=== PATIENT | male | born 1965 | race Caucasian/White ===

== ENCOUNTER 2019-08-24 18:13 | Emergency (ER) | payer OTHER ==
[2019-08-24 18:35] VITALS: BP 128/81; PULSE 67; RESP 20; TEMP 97.8
[2019-08-24] MEDS ORDERED: LIDOCAINE 1% INJ 10MG/ML (20 ML MDV) SQ STA (19:17)
--- NOTE | 2019-08-24 20:13 | ED ---
General Adult HPI - General Chief complaint: Wound/Laceration Stated complaint: IHS-Finger lac Time Seen by Provider: 08/24/19 19:12 Source: patient, RN notes reviewed, old records reviewed Mode of arrival: ambulatory Limitations: no limitations - History of Present Illness Initial comments: 54-year-old male patient presents ED chief complaint of laceration to left thumb. Patient reports that he was using a knife when it slipped, puncturing the lateral aspect of his left thumb. Patient's lites range of motion of digit. Patient reports a tetanus updated in the last 3 years. Patient states the knife was clean brand-new. Denies any other complaints. Systemic: Pt denies fatigue, fever/chills, rash. Pt denies weakness, night sweats, weight loss. Neuro: Pt denies headache, visual disturbances, syncope or pre-syncope. HEENT: Pt denies ocular discharge or irritation, otalgia, rhinorrhea, pharyngitis or notable lymphadenopathy. Cardiopulmonary: Pt denies chest pain, SOB, heart palpitations, dyspnea on exertion. Abdominal/GI: Pt denies abdominal pain, n/v/d. : Pt denies dysuria, burning w/ urination, frequency/urgency. Denies new onset urinary or bowel incontinence. MSK: Pt denies myalgia, loss of strength or function in extremities. Neuro: Pt denies new onset weakness, paresthesias. - Related Data Allergies Allergy/AdvReac Type Severity Reaction Status Date / Time amoxicillin Allergy Rash/Hives Verified 08/24/19 18:35 Iodine and Iodide Containing Allergy Anaphylaxis Verified 08/24/19 18:35 Produc Review of Systems ROS Statement: Those systems with pertinent positive or pertinent negative responses have been documented in the HPI. ROS Other: All systems not noted in ROS Statement are negative. Past Medical History Past Medical History: No Reported History History of Any Multi-Drug Resistant Organisms: None Reported Past Surgical History: Hernia Repair, Orthopedic Surgery Past Psychological History: No Psychological Hx Reported Smoking Status: Never smoker Past Alcohol Use History: Occasional Past Drug Use History: None Reported General Exam - General Exam Comments Initial Comments: Constitutional: NAD, AOX3, Pt has pleasant affect. HEENT: NC/AT, trachea midline, neck supple, no lymphadenopathy. Posterior pharynx non erythematous, without exudates. External ears appear normal, without discharge. Mucous membranes moist. Eyes PERRLA, EOM intact. There is no scleral icterus. No pallor noted. Cardiopulmonary: RRR, no murmurs, rubs or gallops, no JVD noted. Lungs CTAB in anterior and posterior linn. No peripheral edema. Abdominal exam: Abdomen soft and non-distended. Abdomen non-tender to palpation in all 4 quadrants. Bowel sounds active in LLQ. No hepatosplenomegaly. No ecchymosis Neuro: CN II-XII grossly intact. No nuchal rigidity. No raccon eyes, no devlin sign, no hemotympanum. No cervical spinal tenderness. MSK: 3 cm laceration to lateral aspect of left thumb. Full active range of motion of digit. There is irrigated, approximated with 3 simple interrupted sutures. Full range of motion after suture placement. No posterior calf tenderness bilaterally, homans sign negative bilaterally. Posterior tibialis and radial pulse +2 bilaterally. Sensation intact in upper and lower extremities. Full active ROM in upper and lower extremities, 5/5 stregnth. Limitations: no limitations Course Vital Signs 08/24/19 18:32 Temperature 97.8 F Pulse Rate 67 Respiratory 20 Rate Blood Pressure 128/81 O2 Sat by Pulse 99 Oximetry Procedures - Laceration Laceration #1 Consent Obtained: verbal consent Indication: laceration Site: hand (L thumb) Size (cm): 3 Description: linear Depth: simple, single layer Anesthetic Used: lidocaine 1% Anesthesia Technique: local infiltration Amount (mls): 3 Pre-repair: wound explored, irrigated extensively, deep structures intact Type of Sutures: nylon Size of Sutures: 5-0 Number of Sutures: 3 Technique: simple, interrupted Patient Tolerated Procedure: well, no complications Medical Decision Making - Medical Decision Making 54-year-old male patient presents ED chief complaint of laceration to left thumb. Patient reports that he was using a knife when it slipped, puncturing the lateral aspect of his left thumb. Patient's lites range of motion of digit. Patient reports a tetanus updated in the last 3 years. Patient states the knife was clean brand-new. Denies any other complaints. Pt VSS, afebrile. Physical exam displayed: 3 cm laceration to lateral aspect of left thumb. Full active range of motion of digit. There is irrigated, approximated with 3 simple interrupted sutures. Full range of motion after suture placement. Patient discharged with return precautions. Case discussed with Dr. Shrestha. Disposition Clinical Impression: Laceration Disposition: HOME SELF-CARE Condition: Stable Instructions (If sedation given, give patient instructions): Laceration (ED) Additional Instructions: Patient to adhere to previously discussed treatment plan and will take medication(s) as directed. Patient to follow up with PCP in 1-2 days. Patient to return to ED if symptoms do not improve. Please return for suture removal: Hand: 7-10 days Face: 5 days Chest/abdomen: 12-14 days Extremities: 7-10 days Scalp: 7 days Eyebrow: 5-7 days Foot/sole: 12-14 days Please monitor for signs and symptoms of infection including: redness, warmth, drainage, discharge. Please return to ED if these signs or symptoms occur, new signs or symptoms develop or if condition worsens in anyway. Is patient prescribed a controlled substance at d/c from ED?: No Referrals: Jerel Hurd MD [Primary Care Provider] - 1-2 days
== END 2019-08-24 20:30 | disposition home or self-care (01) ==
LOC: EC 18:13
DX: S61.012A Laceration without foreign body of left thumb without damage to nail, initial encounter (principal); Z91.041 Radiographic dye allergy status; Z88.1 Allergy status to other antibiotic agents; W26.0XXA Contact with knife, initial encounter; Y93.89 Activity, other specified; Y92.69 Other specified industrial and construction area as the place of occurrence of the external cause; Y99.0 Civilian activity done for income or pay
CPT/HCPCS: 12002; 99283; J2001

== ENCOUNTER → 2021-05-04 | Outpatient (CLI) | payer OTHER | END | disposition home or self-care (01) | LOC: LABWHC1 12:08 | PROVIDERS: ATTEND Orthopaedic Surgery | DX: Z01.812 Encounter for preprocedural laboratory examination (principal) | CPT/HCPCS: 87070 ==

== ENCOUNTER 2021-05-19 08:23 | Day surgery (SDC) | payer BC, OTHER ==
[2021-05-14 10:05] VITALS: BMI 38.0
--- NOTE | 2021-05-18 18:33 | HP ---
HISTORY AND PHYSICAL CHIEF COMPLAINT: Right knee pain. 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 He notes swelling, stiffness, along with giving way. He is having pain with any prolonged weightbearing activities. He has tried medications in addition to injections with only partial temporary relief. He has worked on weight loss due to dietary restrictions and activity for the past 6 months. PAST MEDICAL HISTORY: Significant for arthritis, gastroesophageal reflux disease, obesity. PAST SURGICAL HISTORY: Significant for right carpal tunnel release, in addition to previous hernia surgery. CURRENT MEDICATIONS: Prilosec, meloxicam, and Celexa. He has ALLERGIES TO AMOXICILLIN, IVP DYE. FAMILY HISTORY: Significant for cancer. SOCIAL HISTORY: Significant for social alcohol use. REVIEW OF SYSTEMS: Sixteen-point review of systems is otherwise reviewed and is noncontributory. PHYSICAL EXAMINATION: On examination, the patient is approximately 6 feet tall, 285 pounds of endomorphic habitus. HEENT exam is nonfocal. Neck is supple. He has painless passive motion of right hip. Straight leg raise is negative. Active motion right knee -14 to 110 degrees of flexion. He has a large effusion. There is no warmth or erythema. He is tender about the medial joint line. Collaterals are stable, Leeann is negative, Bhumika's is equivocal. He has genu varum alignment. His distal neurovascular exam appears intact in the right lower extremity. Previous x-rays of the right knee obtained in the office show severe medial and patellofemoral compartment narrowing with [id number] changes in subchondral sclerosis. IMPRESSION: 1. Right knee severe medial and patellofemoral compartment osteoarthrosis. 2. Increased body mass index. RECOMMENDATIONS: I talked to the patient at length regarding his condition and treatment options. At this point, he is quite limited because of pain related to his osteoarthrosis despite conservative measures. After thorough discussion, he opts for surgery. We will plan to proceed with right total knee arthroplasty. In addition, will institute DVT prophylaxis postoperatively. Risks and benefits were discussed at length in layman's terms. MMODL / IJN: [id number] /
[~2021-05-19 08:23] MED LIST: ACETAMINOPHEN TAB 500 MG TAB PO PRN; MELOXICAM 7.5 MG TAB PO PRN; TRANEXAMIC ACID 1,000 MG in SODIUM CHLORIDE 0.9% 100 ML IVPB PRN; ceFAZolin 3 GM in SODIUM CHLORIDE 0.9% 100 ML IVPB PRN
[2021-05-19] MEDS ORDERED: ONDANSETRON 4 MG/2 ML VIAL ONE (09:03)
[2021-05-19] MEDS ORDERED: LACTATED RINGERS 1,000 ML IV ONE ×2 (09:11→12:06)
[2021-05-19] MEDS ORDERED: DEXAMETHASONE SOD PHOSPHATE 4 MG/ML 1 ML VIAL IV ONE (09:12)
[2021-05-19] MEDS ORDERED: MIDAZOLAM 2 MG/2 ML VIAL IV ONE (09:28)
[2021-05-19] MEDS ORDERED: fentaNYL (PF) 50 MCG/ML 2 ML AMP ONE (10:17)
[2021-05-19] MEDS ORDERED: TRANEXAMIC ACID 1,000 MG/10 ML VIAL ONE (10:17)
[2021-05-19] MEDS ORDERED: MIDAZOLAM 2 MG/2 ML VIAL ONE (10:17)
[2021-05-19] MEDS ORDERED: SODIUM CHLORIDE 0.9% 100 ML BAG ONE (10:17)
[2021-05-19] MEDS ORDERED: LIDOCAINE 1% INJ 10MG/ML (20 ML MDV) ONE (10:17)
[2021-05-19] MEDS ORDERED: SODIUM CHLORIDE 0.9% (PF) 10 ML VIAL ONE (10:17)
[2021-05-19] MEDS ORDERED: ROCURONIUM 10 MG/ML (5 ML VIAL) IV ONE (10:17)
[2021-05-19] MEDS ORDERED: SUCCINYLCHOLINE CHLORIDE 100 MG/5 ML SYR IV ONE (10:17)
[2021-05-19] MEDS ORDERED: ROPIVACAINE 5 MG/ML 30 ML VIAL ONE (10:17)
[2021-05-19] MEDS ORDERED: PROPOFOL 10 MG/ML 20 ML VIAL IV ONE (10:17)
[2021-05-19] MEDS ORDERED: ceFAZolin 1,000 MG in SODIUM CHLORIDE 0.9% 1,000 ML IRRIGATION ONE (11:00)
--- NOTE | 2021-05-19 11:21 | P.ANPRN ---
Procedure Note - Anesthesia - Nerve Block Performed Right Adductor Canal Infusion Time Out Performed: Yes (927) Date of Procedure: 05/19/21 Procedure Start Time: 09:28 Procedure Stop Time: 09:32 Location of Patient: PreOp Indication: Acute Post-Operative Pain, Requested by Surgeon Specifically requested for management of pain by DrZelalem: Olman Sprague Sedation Type: Sedate with meaningful contact maintained Preparation: Sterile Prep Position: Supine Catheter Depth at Skin (cm): 9 Catheter: Indwelling Needle Types: Pajunk Needle Gauge: 21 Ultrasound used to visualize needle placement: Yes Ultrasound used to observe medication spread: Yes Injectate: 0.5% Ropivacaine (see comment for volume) (15cc + 5cc nacl pf) Blood Aspirated: No Pain Paresthesia on Injection Noted: No Resistance on Injection: Normal Image Stored and Saved: Yes Events: Uneventful and Well Tolerated Right iPack Single Time Out Performed: Yes (927) Date of Procedure: 05/19/21 Procedure Start Time: 09:33 Procedure Stop Time: 09:37 Location of Patient: PreOp Indication: Acute Post-Operative Pain, Requested by Surgeon Specifically requested for management of pain by DrZelalem: Olman Sprague Sedation Type: Sedate with meaningful contact maintained Preparation: Sterile Prep Position: Supine Catheter: None Needle Types: Pajunk Needle Gauge: 21 Ultrasound used to visualize needle placement: Yes Ultrasound used to observe medication spread: Yes Injectate: 0.5% Ropivacaine (see comment for volume) (15cc + 5cc NACL PF) Blood Aspirated: Yes Pain Paresthesia on Injection Noted: Yes Resistance on Injection: Normal Image Stored and Saved: Yes Events: Uneventful and Well Tolerated
[2021-05-19] MEDS ORDERED: HYDROcodone/APAP 7.5-325MG 1 EACH TAB PO PRN (12:22)
[2021-05-19] MEDS ORDERED: ACETAMINOPHEN TAB 325 MG TAB PO PRN (12:22)
[2021-05-19] MEDS ORDERED: NALOXONE 0.4 MG/ML 1 ML VIAL IV PRN (12:22)
[2021-05-19] MEDS ORDERED: MAGNESIUM HYDROXIDE 2,400 MG/10 ML CUP PO PRN (12:22)
[2021-05-19] MEDS ORDERED: HYDROmorphone 1 MG/ML 1 ML SYRINGE IVP PRN (12:22)
[2021-05-19] MEDS ORDERED: HYDROmorphone 0.5 MG/0.5 ML SYRINGE IVP PRN (12:22)
--- NOTE | 2021-05-19 12:43 | P.OP ---
Date of Procedure: 05/19/21 Preoperative Diagnosis: Right knee severe tricompartmental osteoarthrosis Postoperative Diagnosis: Same Procedure(s) Performed: Right total knee arthroplastycementedposterior stabilized Implants: Depuy Attune size 7 cemented femoral component, size 6 cemented tibial component, 11 mm articular surface, 38 mm cemented patellar component. This is a posterior stabilized implant. Anesthesia: GETA Surgeon: Olman Sprague Tool Pusher #1: Pedrito Masters Assistant #2: Misael Luna Estimated Blood Loss (ml): 50 Pathology: other (Bone fragments) Condition: stable Disposition: PACU Indications for Procedure: The patient's a 55-year-old male who presents with progressive right knee pain secondary to osteoarthrosis despite conservative treatment. A discussion of the risks and benefits of operative intervention versus continued conservative measures was made with the patient. He opted to proceed with surgery. Operative risks to include infection, neurovascular injury, development of blood clots, possible fracture, possible component loosening/failure and need for subsequent procedures was discussed. Informed consent was obtained. Operative Findings: As below Description of Procedure: The patient was brought to the operating room, and after induction of spinal anesthesia the right lower extremity was prepped and draped in a normal fashion. The tourniquet was inflated to 270 mm marker. A longitudinal incision extending 3 finger breaths above the superior pole of patella extending to the medial aspect the tibial tubercle was then made. The skin and subcutaneous tissues were divided sharply. Electrocautery was used for hemostasis. A medial parapatellar arthrotomy was performed. The medial soft tissues to include the superficial and deep portions of the medial collateral ligament were elevated subperiosteally. The patella was everted. A portion of the retropatellar fat pad was excised sharply. The anterior cruciate ligament was sacrificed. Blunt retractors were placed. A starting hole was made in the distal femur 1 cm anterior to the posterior cruciate ligament origin. An intramedullary femoral guide was then inserted planning on 5 valgus distal cut with 9 mm distal resection. The cutting block was pinned in place. The distal cut was then made. The posterior referencing sizing guide was utilized. I felt size 7 was most appropriate. 3 of external rotation was built into the system and verified off the trans-epicondylar axis and the posterior condyles. The cutting block was pinned in place. The anterior, posterior, and chamfer cuts then made. Bone fragments were removed. The intercondylar guide was placed and the notch cut was made with a sagittal saw. The bone block was removed in one fragment. The trial component was then placed. There is good anterior to posterior and medial to lateral fit. The distal peg holes were drilled. The trial component was removed. Attention was then paid towards preparing the proximal femur. An extra medullary guide was utilized in line with the tibial shaft and second metatarsal distally. I planned on 2 mm resection from the medial compartment. The cutting block was pinned in place. The proximal tibial cut was then made. The bone was removed in one fragment. The remnants of the medial and lateral menisci were excised at the capsular junction with electrocautery. The tibia sized most appropriately at size 6. The trial femoral and tibial components were placed along with a 11 mm articular surface. I was able to obtain full flexion and extension with internal and external rotation. After several flexion and extension cycles, the tibial rotation was marked with electrocautery line with the medial one third of the tibial tubercle. Attention was then paid towards preparing the patella. A patella reamer was utilized taking stem to 14 mm of bone stock. A good flush cut was made. The patella sized most appropriately PA mm. The peg holes were drilled. The trial components placed. I had good patellofemoral tracking with no hands technique. The trial components were then removed. The tibia was prepared in the appropriate rotation with appropriate drill and keel punch planning on a 50 mm stem extension. The posterior osteophytes were removed with a curved osteotome. The flexion and extension gaps were checked and felt to be symmetric at 11 mm. A trial components were then removed. The posterior soft tissues were injected with ropivacaine. The bony surfaces were prepared with pulsatile lavage and dried. The tibial component was then cemented place was fully seated. Excess cement was removed. The femoral component cemented place and was fully seated. Excess cement was removed. The trial 11 mm articular surface was placed and the knee was put in full extension. The patella component was cemented place. After the cement had sufficiently hardened, the knee was again taken through a range of motion. Again I was able to obtain full flexion and extension with varus and valgus stress. The trial 7 mm articular surface was removed and the final one inserted. This was fully seated. Care was taken to avoid any soft tissue interposition. Pulsatile lavage was again utilized. The medial parapatellar arthrotomy was closed with #2 Ethibond suture. The tourniquet was deflated with approximately 70 minutes total tourniquet time. Final hemostasis was obtained with the cautery. There was minimal bleeding therefore a deep drain was not placed. The subcutaneous tissues were reapproximated with interrupted 2-0 Vicryl sutures. The skin was reapproximated with 3-0 subcuticular strata fix suture. Skin tape and adhesive was applied. A sterile dressing was applied. The patient was awoken from sedation and transferred to recovery room in good condition. Blood loss was estimated at 50 mL. No complications were incurred. Sponge and needle counts were correct at the end of the case. Evangelist SANCHEZ assisted during the major components of this case to include exposure, bone resection, implantation, and closure.
[2021-05-19] MEDS ORDERED: ROPIVACAINE 0.2%-NS ON-Q PUMP 1,090 MG, EMPTY PAIN BALL 1 EACH MISCELLANE PRN (12:54)
[2021-05-19] MEDS ORDERED: HYDROmorphone 0.5 MG/0.5 ML SYRINGE IVP ONE (13:11)
[2021-05-19] MEDS ORDERED: ONDANSETRON 4 MG/2 ML VIAL IVP ONE (13:14)
[2021-05-19] MEDS ORDERED: KETOROLAC 15 MG/ML 1 ML VIAL IVP ONE (13:14)
--- NOTE | 2021-05-19 13:47 | XR ---
EXAMINATION TYPE: XR knee limited RT DATE OF EXAM: 05/19/2021 CLINICAL HISTORY: Right knee pain and arthritis status post total knee replacement. TECHNIQUE: Portable AP and crosstable lateral views of the right knee are obtained immediately posto peratively. COMPARISON: None FINDINGS: Metallic hardware from total right knee arthroplasty is seen and appears satisfactory in a lignment and position. There is evidence of recent surgery with diffuse subcutaneous gas and soft ti ssue swelling noted. IMPRESSION: METALLIC HARDWARE FROM TOTAL RIGHT KNEE ARTHROPLASTY IS SATISFACTORY IN ALIGNMENT.
--- NOTE | 2021-05-19 14:36 | P.CONS ---
History of Present Illness - Reason for Consult Consult date: 05/19/21 Continued medical management - History of Present Illness History of Presenting Illness: Patient is a 55-year-old male with a past medical history of osteoarthritis, GERD and anxiety. He is currently status post right total knee [id number] stabilized. Surgical procedure completed by Dr. Sprague. We have been consulted to follow along for continued medical management of this patient throughout his hospitalization. Upon bedside assessment, patient resting comfortably denies having any needs or concerns. He does report mild postoperative discomfort to his right knee stating it feels as though something is sitting on his knee like pressure. Postsurgical dressing and ice pack in place. Ropivacaine pump in place. Sensation of distal extremity intact. Patient denies having any postoperative nausea or vomiting. He denies any headache, lightheadedness, dizziness, chest pain, palpitations, shortness of breath, or experiencing any numbness/tingling sensations in his extremities. Denies history of DVTs or PEs. Review of systems: Pertinent positives and negatives as discussed in HPI, a complete review of systems was performed and all other systems are negative. Physical exam: General: non toxic, no distress, appears at stated age Derm: warm, dry Head: atraumatic, normocephalic, symmetric Eyes: EOMI, no lid lag, anicteric sclera Mouth: no lip lesion, mucus membranes moist Cardiovascular: S1-S2 normal with regular rate and rhythm. No murmurs, gallops, or rubs noted. Posterior tibial pulses palpated bilaterally. Cap refill less than 2 seconds. Lungs: Respirations even, regular, and unlabored on room air. Lungs clear to auscultation bilaterally with no wheezes, rhonchi, or rales noted. No accessory muscle usage. Abdominal: soft, nontender to palpation, no guarding, no appreciable organomegaly Ext: Right knee with postoperative dressing MEHREEN hose, and ice pack in place. Neuro: GCS 15. Speech clear. CN II-XI grossly intact, no focal neuro deficits Psych: Alert, oriented, appropriate affect Assessment and Plan of Care: Status post right total knee arthroplasty -Pain management, weightbearing, PT/OT, and DVT prophylaxis per primary admitting orthopedic surgery team. -Patient currently on Xarelto for DVT prophylaxis. GERD -Continue daily medication management with omeprazole 40 mg each morning. Anxiety -Continue daily medication regimen with Celexa. Thank you for allowing us to participate in the care of this pleasant patient. Do not hesitate to contact us with questions. Someone can be reached from the [facility] hospitalist group all hours of the day at [phone] or via [employer]. Nurse Practitioner has collaborated and discussed this patient with the supervising physician. Signing provider agrees with the documented findings, assessment, and plan of care with no further recommendations at this time. Past Medical History Past Medical History: GERD/Reflux, Osteoarthritis (OA) History of Any Multi-Drug Resistant Organisms: None Reported Past Surgical History: Hernia Repair, Orthopedic Surgery Additional Past Surgical History / Comment(s): arthroscopy left knee, carpel t unnel x2 rt hand Past Anesthesia/Blood Transfusion Reactions: No Reported Reaction Additional Past Anesthesia/Blood Transfusion Reaction / Comm: no hx blood transfusion Smoking Status: Never smoker - Past Family History Mother Family Medical History: Cancer Additional Family Medical History / Comment(s): skin Medications and Allergies Home Medications Medication Instructions Recorded Confirmed Type Acetaminophen [Tylenol Arthritis] 650 mg PO Q8HR PRN 05/14/21 05/19/21 History Ascorbic Acid [Vitamin C] 1,000 mg PO DAILY 05/14/21 05/19/21 History Cholecalciferol [Vitamin D3 (25 25 mcg PO DAILY 05/14/21 05/19/21 History Mcg = 1000 Iu)] Citalopram Hydrobromide [CeleXA] 20 mg PO QAM 05/14/21 05/19/21 History Meloxicam 15 mg PO DAILY 05/14/21 05/19/21 History Multivitamins, Thera [Multivitamin 1 tab PO DAILY 05/14/21 05/19/21 History (formulary)] Omeprazole 40 mg PO QAM 05/14/21 05/19/21 History Vitamin B Complex 1 each PO DAILY 05/14/21 05/19/21 History Wt Loss Tablet 1 tab PO DAILY 05/14/21 05/19/21 History Allergies Allergy/AdvReac Type Severity Reaction Status Date / Time amoxicillin Allergy Rash/Hives Verified 05/19/21 08:48 Iodinated Contrast Media Allergy Anaphylaxis Verified 05/19/21 08:48 Iodine and Iodide Containing Allergy Anaphylaxis Verified 05/19/21 08:48 Produc Physical Exam Vitals: Vital Signs Temp Pulse Pulse Resp BP Pulse Ox 05/19/21 13:32 75 16 129/73 93 L 05/19/21 13:17 72 16 127/74 96 05/19/21 13:00 76 16 117/66 96 05/19/21 12:46 97.3 F L 84 18 125/73 95 05/19/21 09:45 77 16 122/73 98 05/19/21 09:30 77 18 112/70 95 05/19/21 08:54 97.5 F L 81 16 121/76 97 Intake and Output 05/18/21 05/19/21 05/19/21 22:59 06:59 14:59 Intake Total 1451 Output Total 50 Balance 1401 Intake: IV 1451 Output: Estimated Blood Loss 50 Other: Weight 129.8 kg
[2021-05-19 20:12] VITALS: TEMP 98.4
[2021-05-19] MEDS ORDERED: SENNOSIDES-DOCUSATE SODIUM 1 EACH TAB PO SCH (21:00)
[2021-05-19] MEDS: ceFAZolin 3 GM in SODIUM CHLORIDE 0.9% 100 ML IVPB SCH (21:53)
[2021-05-20] MEDS: ceFAZolin 3 GM in SODIUM CHLORIDE 0.9% 100 ML IVPB SCH (04:50)
[2021-05-20] MEDS ORDERED: ceFAZolin 3 GM in SODIUM CHLORIDE 0.9% 100 ML IVPB SCH (05:00)
[2021-05-20] MEDS ORDERED: PANTOPRAZOLE 40 MG TABLET PO SCH (07:30)
[2021-05-20] MEDS: HYDROcodone/APAP 7.5-325MG 1 EACH TAB PO PRN ×2 (07:52→13:06)
[2021-05-20] MEDS ORDERED: RIVAROXABAN 10 MG TAB PO SCH (09:00)
[2021-05-20] MEDS ORDERED: CITALOPRAM HYDROBROMIDE 20 MG TAB PO SCH (09:00)
--- NOTE | 2021-05-20 11:14 | P.DS ---
Providers Date of admission: 05/19/2021 Expected date of discharge: 05/20/21 Attending physician: Olman Sprague Consults: 05/19/21 12:25 Consult Physician Routine Consulting Provider: Lien Kyle Consult Reason/Comments: Medical Management Do you want consulting provider notified?: Yes Primary care physician: [facility] Course: Date of admission: 05/19/2021 Date of discharge: 05/20/2021 Admission diagnosis: Right knee osteoarthritis Discharge diagnosis: Same Attending physician: Dr. Sprague Surgical procedures: Right total knee arthroplasty Brief history: Patient is a 55-year-old male with a history of progressive primary right knee osteoarthritis. At this point patient has failed conservative treatment measures and has opted to proceed with a elective right total knee arthroplasty. Hospital course: Details of patient's surgery can be found in operative report. Patient tolerated the procedure well and was subsequently transported to orthopedic floor. Patient's orthopedic and medical care was provided daily. Patient had daily laboratory tests performed for evaluation of overall blood counts. Patient had daily physical therapy to include strengthening range of motion as well as education with walker ambulation. Patient was treated with Xarelto for their postoperative DVT prophylaxis during their inpatient stay. Patient was noted to have a relatively uneventful postoperative course. Patient reported satisfactory pain control with oral pain medications by postoperative day 1. Patient showed satisfactory progress with physical therapy. Patient moved steadily through the program and had no difficulty meeting the goals by postoperative day 1. Given patient's otherwise satisfactory course and having met physical therapy goals, plan is to discharge patient home on postoperative day 1. Discharge condition/disposition: Patient will be discharged home in stable condition. Discharge medications: Instructions are given on resumption of patient's normal daily medications per primary care recommendation, in addition patient will be prescribed [place] 7.5 mg/25 mg; eliquis 2.5 mg BID x 2 weeks; senna. Discharge instructions: 1. Wound care and infection precautions, keep incision dry and covered while showering, no lotions, creams, moisturizers. No soaking, tubs, pools, hottubs. Do not scrub over the incision. 2. Weight-bear as tolerated with walker / cane until follow-up. 3. Ice and elevate when necessary. Do not exceed 20 minutes per hour with ice pack. 4. Utilize compression sleeve until seen at first follow up appointment. 5. Visiting nursing care. 6. Home physical therapy including home CPM. 7. Pain meds and anticoagulants per prescription. 8. Pain medication has potential to cause constipation. Increase oral fluid and fiber intake. Contact primary care provider if you have not had a bowel movement within 48 hours after discharge 9. No anti-inflammatory medication until discussed at first post operative visit, this including Motrin, Aleve, Mobic, Diclofenac. 10. Follow up in office at 2 weeks postop with Evangelist Masters PA-C / Misael Luna PA-C 11. Follow up with your primary care doctor 7-10 days after discharge. 12. Contact [facility] with any questions, . Assessment: Right knee osteoarthritis Procedures: Right total knee arthroplasty Patient Condition at Discharge: Good Plan - Discharge Summary Discharge Rx Participant: No New Discharge Prescriptions: New HYDROcodone/APAP 7.5-325MG [[place] 7.5] 1 each PO Q6HR PRN #36 tab PRN Reason: Pain Apixaban [Eliquis] 2.5 mg PO BID #60 tab Sennosides [Senna] 8.6 mg PO DAILY #20 tablet No Action Ascorbic Acid [Vitamin C] 1,000 mg PO DAILY Multivitamins, Thera [Multivitamin (formulary)] 1 tab PO DAILY Acetaminophen [Tylenol Arthritis] 650 mg PO Q8HR PRN PRN Reason: Pain Meloxicam 15 mg PO DAILY Cholecalciferol [Vitamin D3 (25 Mcg = 1000 Iu)] 25 mcg PO DAILY Omeprazole 40 mg PO QAM Citalopram Hydrobromide [CeleXA] 20 mg PO QAM Vitamin B Complex 1 each PO DAILY Wt Loss Tablet 1 tab PO DAILY Discharge Medication List Acetaminophen [Tylenol Arthritis] 650 mg PO Q8HR PRN 05/14/21 [History] Ascorbic Acid [Vitamin C] 1,000 mg PO DAILY 05/14/21 [History] Cholecalciferol [Vitamin D3 (25 Mcg = 1000 Iu)] 25 mcg PO DAILY 05/14/21 [History] Citalopram Hydrobromide [CeleXA] 20 mg PO QAM 05/14/21 [History] Meloxicam 15 mg PO DAILY 05/14/21 [History] Multivitamins, Thera [Multivitamin (formulary)] 1 tab PO DAILY 05/14/21 [History] Omeprazole 40 mg PO QAM 05/14/21 [History] Vitamin B Complex 1 each PO DAILY 05/14/21 [History] Wt Loss Tablet 1 tab PO DAILY 05/14/21 [History] Apixaban [Eliquis] 2.5 mg PO BID #60 tab 05/20/21 [Rx] HYDROcodone/APAP 7.5-325MG [[place] 7.5] 1 each PO Q6HR PRN #36 tab 05/20/21 [Rx] Sennosides [Senna] 8.6 mg PO DAILY #20 tablet 05/20/21 [Rx] Follow up Appointment(s)/Referral(s): [facility] [NON-STAFF] - As Needed (Continuous Passive Motion knee machine) [facility], [NON-STAFF] - As Needed Activity/Diet/Wound Care/Special Instructions: Orthopedic Discharge Instructions: 1. Wound care and infection precautions, [keep incision dry and covered while showering], no lotions, creams, moisturizers. No soaking, pools, hot tubs. Do not scrub over incision. 2. Weight-bear [as tolerated] with walker / cane until follow-up. 3. Ice and elevate when necessary. Do not exceed 20 minutes per hour with ice pack. 4. Utilize compression sleeve until seen at first follow up appointment. 5. Pain meds and anticoagulants per prescription. 6. Pain medication has potential to cause constipation. Increase oral fluid and fiber intake. Contact primary care provider if you have not had a bowel movement within 48 hours after discharge. 7. No anti-inflammatory medication until discussed at first post operative visit, this including Motrin, Aleve, Mobic, Diclofenac. 8. Follow up in office at 2 weeks postop with Evangelist Masters PA-C / Misael Luna PA-C 9. Follow up with your primary care doctor 7-10 days after discharge. 10. Contact [facility] with any questions, . Keep the mesh tape on for 7-10 days after surgery. While showering please cover dressing with Saran wrap or stick and seal. Mesh tape may removed 7-10 days after surgery Discharge Disposition: HOME WITH HOME HEALTH SERVICES
--- NOTE | 2021-05-20 11:20 | P.PN ---
Subjective Progress Note Date: 05/20/21 Principal diagnosis: Right knee osteoarthritis Patient was seen at bedside this morning. Patient was sitting up in chair with legs elevated. Patient rates the pain in the knee 1/10 currently. Patient says he has been using incentive spirometer and physical therapy did come by this morning. Patient says he did do well and walked out to the hallway and up-and-down a couple stairs. Patient says he is ready to go home today. Patient denies fever, chest pain, shortness of breath, nausea, vomiting, saddle anesthesia, loss of bowel/bladder control. Objective - Vital Signs Vital signs: Vital Signs Temp 98.4 F 05/20/21 07:16 Pulse 77 05/20/21 07:16 Resp 17 05/20/21 07:16 BP 120/60 05/20/21 07:16 Pulse Ox 95 05/20/21 07:16 Intake & Output 05/19/21 05/20/21 05/20/21 18:59 06:59 18:59 Intake Total 1451 890 Output Total 350 350 Balance 1101 540 Weight 129.8 kg Intake: IV 1451 Intake, IV Titration 650 Amount Lactated Ringers 1,000 ml 450 @ 0 mls/hr IV .[facility] Rx#:[id number] ceFAZolin 3 gm In Sodium 100 Chloride 0.9% 100 ml @ 200 mls/hr IVPB Q8H [facility] Rx#:[id number] ceFAZolin 3 gm In Sodium 100 Chloride 0.9% 100 ml @ 200 mls/hr IVPB Q8H [facility] Rx#:[id number] Oral 240 Output: Urine 300 350 Estimated Blood Loss 50 Other: Voiding Method Urinal Urinal - Exam Right knee: Incision is clean, dry, and intact. The exofin fusion tape is in good condition. There is minimal soft tissue swelling and ecchymosis surrounding the medial and lateral aspects of the incision. Calf is soft, no tenderness with palpation. Plantar flexion, dorsiflexion, EHL, FHL are intact. Sensory exam to light touch throughout the extremity is intact, dorsal pedis pulses 2+. Assessment and Plan Assessment: Right knee osteoarthritis Plan: 1. Right knee osteoarthritis - right total knee arthroplasty performed yesterday, 05/19/2021. Patient doing well this morning 2. Pain managementstable at this time going home with [place] 7.5 mg/325 mg 3. DVT prophylaxis/GI prophylaxisXarelto while in hospital. Senna. Going home with senna and eliquis 2.5 mg BID 4. Encourage incentive spirometer use 5. PT/OT weightbearing as tolerated/with walker as needed 6. Discharge planning - discharge home today 05/20/2021 Time with Patient: Less than 30
[2021-05-20 12:08] LABS: Basophils # (A) 0.02 X 10*3/uL (0.00-0.10); Basophils % (A) 0.2 %; Eosinophils # (A) 0.05 X 10*3/uL (0.04-0.35); Eosinophils % (A) 0.5 %; HCT 35.5 % (39.6-50.0); HGB 11.9 g/dL (13.0-17.0); Lymphocytes # (A) 1.81 X 10*3/uL (0.90-5.00); Lymphocytes % (A) 18.7 %; MCHC 33.5 g/dL (32.0-37.0); MCV 95.4 fL (80.0-97.0); Mean Platelet Volume 10.2 fL (9.5-12.2); Monocytes # (A) 0.66 X 10*3/uL (0.20-1.00); Monocytes % (A) 6.8 %; Neutrophils % (A) 73.4 %; Platelet Count 161 X 10*3/uL (140-440); RBC 3.72 X 10*6/uL (4.40-5.60); RDW 12.9 % (11.5-14.5); WBC 9.68 X 10*3/uL (4.50-10.00)
--- NOTE | 2021-05-20 13:40 | P.PN ---
Subjective Progress Note Date: 05/20/21 No new complaints. Discharge home today. Discharge med rec complete from medicine perspective. Objective - Vital Signs Vital signs: Vital Signs Temp 98.4 F 05/20/21 07:16 Pulse 77 05/20/21 07:16 Resp 17 05/20/21 07:16 BP 120/60 05/20/21 07:16 Pulse Ox 95 05/20/21 07:16 Intake & Output 05/19/21 05/20/21 05/20/21 18:59 06:59 18:59 Intake Total 1451 890 Output Total 350 350 Balance 1101 540 Weight 129.8 kg Intake: IV 1451 Intake, IV Titration 650 Amount Lactated Ringers 1,000 ml 450 @ 0 mls/hr IV [facility] Rx#:[id number] ceFAZolin 3 gm In Sodium 100 Chloride 0.9% 100 ml @ 200 mls/hr IVPB Q8H [facility] Rx#:[id number] ceFAZolin 3 gm In Sodium 100 Chloride 0.9% 100 ml @ 200 mls/hr IVPB Q8H [facility] Rx#:[id number] Oral 240 Output: Urine 300 350 Estimated Blood Loss 50 Other: Voiding Method Urinal Urinal - Exam Gen: awake, alert HEENT: normocephalic, atraumatic, good hearing acuity, moist mucous membranes Resp: good air exchange, breathing comfortably with no accessory muscle use CVS: good distal perfusion x 4, GI: soft, NTTP, ND : no SPT, no CVAT, mims catheter not present MSK: no pitting edema, no clubbing Neuro: non-focal, moving all extremities Psych: cooperative, euthymic mood - Labs CBC & Chem 7: 05/20/21 07:55 Labs: Abnormal Lab Results - Last 24 Hours (Table) 05/20/21 Range/Units 07:55 RBC 3.72 L (4.40-5.60) X 10*6/uL Hgb 11.9 L (13.0-17.0) g/dL Hct 35.5 L (39.6-50.0) % Assessment and Plan Assessment: Status post right total knee arthroplasty -Pain management, weightbearing, PT/OT, and DVT prophylaxis per primary adm itting orthopedic surgery team. -Patient currently on Eliquis for DVT prophylaxis. GERD -Continue daily medication management with omeprazole 40 mg each morning. Anxiety -Continue daily medication regimen with Celexa. Thank you for allowing us to participate in the care of this pleasant patient. Do not hesitate to contact us with questions. Someone can be reached from the [facility] hospitalist group all hours of the day at [phone] or via [employer].
[2021-05-20 13:56] VITALS: BP 153/71; PULSE 81; RESP 18
== END 2021-05-20 15:35 | disposition home health service (06) ==
LOC: OR 08:23 → 4SSUR 12:49 → OR 05-20 15:35
PROVIDERS: ATTEND Orthopaedic Surgery
DX: M17.11 Unilateral primary osteoarthritis, right knee (principal); K21.9 Gastro-esophageal reflux disease without esophagitis; E66.9 Obesity, unspecified; Z79.899 Other long term (current) drug therapy; Z88.0 Allergy status to penicillin; Z91.041 Radiographic dye allergy status
CPT/HCPCS: 97161; 64999; 64448; 76942; 85025; 88300; 73560; 27446; C1713 ×2; C1776; J2250; J1100; J0690 ×3; J2405; J2001; J3010; J2795; J1885; J0330; J2704; J1170

== ENCOUNTER → 2023-01-27 | Outpatient (CLI) | payer BC | END | disposition home or self-care (01) | LOC: LABPAT 10:22 | PROVIDERS: ATTEND Orthopaedic Surgery | DX: Z01.812 Encounter for preprocedural laboratory examination (principal); Z22.322 Carrier or suspected carrier of Methicillin resistant Staphylococcus aureus; Z96.659 Presence of unspecified artificial knee joint | CPT/HCPCS: 87070 ==

== ENCOUNTER 2023-02-01 06:19 | Observation (INO) | payer BC ==
[2023-01-26 12:07] VITALS: BMI 38.6
--- NOTE | 2023-01-31 08:34 | P.HPOR ---
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 He has pain with weightbearing activities and at night. He's tried medications along with injections the past several years. He notes it significantly limits him. 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 History of Any Multi-Drug Resistant Organisms: None Reported Past Surgical History: Hernia Repair, Orthopedic Surgery Additional Past Surgical History / Comment(s): arthroscopy left knee, carpel tunnel x2 rt hand, R total knee Past Anesthesia/Blood Transfusion Reactions: No Reported Reaction Additional Past Anesthesia/Blood Transfusion Reaction / Comment(s): no hx blood transfusion Smoking Status: Never smoker - Past Family History Mother Family Medical History: Cancer Additional Family Medical History / Comment(s): skin Medications and Allergies Home Medications Medication Instructions Recorded Confirmed Type Acetaminophen [Tylenol Arthritis] 650 mg PO Q8HR PRN 05/14/21 01/26/23 History Ascorbic Acid [Vitamin C] 1,000 mg PO DAILY 05/14/21 01/26/23 History Cholecalciferol [Vitamin D3 (25 25 mcg PO DAILY 05/14/21 01/26/23 History Mcg = 1000 Iu)] Citalopram Hydrobromide [CeleXA] 20 mg PO QAM 05/14/21 01/26/23 History Multivitamins, Thera [Multivitamin 1 tab PO DAILY 05/14/21 01/26/23 History (formulary)] Omeprazole 40 mg PO QAM 05/14/21 01/26/23 History Vitamin B Complex 1 each PO DAILY 05/14/21 01/26/23 History Mv-Mn/C/Glutamin/Lysin/Aaoq702 1 tablet PO DAILY 01/26/23 01/26/23 History [Airborne Gummies] Ubidecarenone [Co Q-10] 30 mg PO DAILY 01/26/23 01/26/23 History Allergies Allergy/AdvReac Type Severity Reaction Status Date / Time amoxicillin Allergy Rash/Hives Verified 01/26/23 11:47 Iodinated Contrast Media Allergy Anaphylaxis Verified 01/26/23 11:47 Iodine and Iodide Containing Allergy Anaphylaxis Verified 01/26/23 11:47 Produc Physical Examination - Knee left Appearance: effusion Effusion grade: grade 2 Varus alignment in stance: 10 degrees Tenderness with palpation: medial Pain: throughout ROM Gait: limping ROM: extension: -10 degrees ROM: flexion: 110 degrees Crepitus with motion: Yes Strength: extension: 5/5 Strength: flexion: 5/5 Meniscal tests: medial meniscal tests: positive, medial joint line pain: positive Results The patient is a well-developed well-nourished male approximately 6 foot tall, 275 pounds of endomorphic habits. HEENT exam is nonfocal, neck is supple. He has painless passive motion of the left hip. Straight leg raise is negative. His distal neurovascular appears intact in the left lower extremity. - Diagnostic results Knee x-ray: image reviewed (3 views of the left knee obtained in the office show severe medial and patellofemoral compartment osteoarthrosis with [id number] changes and subchondral sclerosis.) Assessment and Plan Assessment: Left knee severe tricompartmental osteoarthrosis Plan: I talked with the patient was guarding his condition along with treatment options. At this point quite symptomatic despite previous extensive conservative measures. After thorough discussion he opted to proceed with surgery. We will plan to proceed with left total knee arthroplasty. We will institute DVT prophylaxis postoperatively.
[~2023-02-01 06:19] MED LIST changes: +ONDANSETRON 4 MG/2 ML VIAL IVP ONE; -TRANEXAMIC ACID 1,000 MG in SODIUM CHLORIDE 0.9% 100 ML IVPB PRN; +TRANEXAMIC ACID IN NACL,ISO-OS 1,000 MG in SALINE 1 100ML.BAG IVPB PRN
[2023-02-01] MEDS: LACTATED RINGERS 1,000 ML IV SCH ×4 (07:03→20:50)
[2023-02-01] MEDS ORDERED: MIDAZOLAM 2 MG/2 ML VIAL IVP ONE (07:23)
[2023-02-01] MEDS ORDERED: ePHEDrine 50 MG/ML 1 ML VIAL ONE (07:56)
[2023-02-01] MEDS ORDERED: SODIUM CHLORIDE 0.9% (PF) 10 ML VIAL ONE (07:56)
[2023-02-01] MEDS ORDERED: ROCURONIUM 10 MG/ML (5 ML VIAL) IV ONE (07:56)
[2023-02-01] MEDS ORDERED: TRANEXAMIC ACID IN NACL,ISO-OS 1,000 MG/100 ML BAG ONE (07:56)
[2023-02-01] MEDS ORDERED: SUCCINYLCHOLINE CHLORIDE 200 MG/10 ML VIAL IV ONE (07:56)
[2023-02-01] MEDS ORDERED: fentaNYL (PF) 50 MCG/ML 2 ML AMP ONE (07:56)
[2023-02-01] MEDS ORDERED: PROPOFOL 10 MG/ML 20 ML VIAL IV ONE (07:56)
[2023-02-01] MEDS ORDERED: LIDOCAINE 2% INJ 20 MG/ML (2 ML VIAL) ONE (07:56)
[2023-02-01] MEDS ORDERED: ROPIVACAINE 5 MG/ML 30 ML VIAL ONE (07:56)
[2023-02-01] MEDS ORDERED: WATER FOR INJECTION, STERILE 10 ML VIAL IV ONE (07:56)
[2023-02-01] MEDS ORDERED: KETAMINE 10 MG/ML 20 ML VIAL ONE (07:56)
[2023-02-01] MEDS ORDERED: ceFAZolin 1,000 MG in SODIUM CHLORIDE 0.9% 1,000 ML IRRIGATION ONE (08:25)
--- NOTE | 2023-02-01 08:46 | P.ANPRN ---
Procedure Note - Anesthesia - Nerve Block Performed Left Adductor Canal Infusion Time Out Performed: Yes (723) Date of Procedure: 02/01/23 Procedure Start Time: : Procedure Stop Time: Location of Patient: PreOp Indication: Acute Post-Operative Pain, Requested by Surgeon Specifically requested for management of pain by DrZelalem: Carrington Sprague Sedation Type: Sedate with meaningful contact maintained Preparation: Sterile Prep Position: Supine Catheter: Indwelling Needle Types: Pajunk Needle Gauge: 18 Ultrasound used to visualize needle placement: Yes Ultrasound used to observe medication spread: Yes Injectate: 0.5% Ropivacaine (see comment for volume) (15cc +5cc nacl pf) Blood Aspirated: No Pain Paresthesia on Injection Noted: No Resistance on Injection: Normal Image Stored and Saved: Yes Events: Uneventful and Well Tolerated
--- NOTE | 2023-02-01 08:49 | P.ANPRN ---
Procedure Note - Anesthesia - Nerve Block Performed Left iPack Single Time Out Performed: Yes (723) Date of Procedure: 02/01/23 Procedure Start Time: : Procedure Stop Time: :32 Location of Patient: PreOp Indication: Acute Post-Operative Pain, Requested by Surgeon Specifically requested for management of pain by DrZelalem: Carrington Sprague Sedation Type: Sedate with meaningful contact maintained Preparation: Sterile Prep Position: Supine Catheter: None Needle Types: Pajunk Needle Gauge: 21 Ultrasound used to visualize needle placement: Yes Ultrasound used to observe medication spread: Yes Injectate: 0.5% Ropivacaine (see comment for volume) (15cc +5cc nacl pf each side) Blood Aspirated: No Pain Paresthesia on Injection Noted: No Resistance on Injection: Normal Image Stored and Saved: Yes Events: Uneventful and Well Tolerated
[2023-02-01] MEDS ORDERED: NALOXONE 0.4 MG/ML 1 ML VIAL IV PRN (09:39)
[2023-02-01] MEDS ORDERED: HYDROcodone/APAP 5-325MG 1 EACH TAB PO PRN (09:39)
[2023-02-01] MEDS ORDERED: MAGNESIUM HYDROXIDE 2,400 MG/10 ML CUP PO PRN (09:39)
[2023-02-01] MEDS ORDERED: HYDROmorphone 0.5 MG/0.5 ML SYRINGE IVP PRN (09:39)
[2023-02-01] MEDS ORDERED: LACTATED RINGERS 1,000 ML IV ONE (09:40)
--- NOTE | 2023-02-01 10:07 | P.OP ---
Date of Procedure: 02/01/23 Preoperative Diagnosis: Left knee severe tricompartmental osteoarthrosis Postoperative Diagnosis: Same Procedure(s) Performed: Left total knee arthroplastycementedposterior stabilized Implants: Depuy Attune size 7 cemented femoral component, size 6 cemented tibial component, 9 mm articular surface, 38 mm cemented patellar component. This is a posterior stabilized implant. Anesthesia: [facility] Surgeon: Olman Sprague [employer] Assistant #1: Misael Luna Estimated Blood Loss (ml): 50 Pathology: other (Bone fragments) Condition: stable Disposition: PACU Indications for Procedure: The patient's a 57-year-old male who presents with progressive left knee pain secondary to osteoarthrosis despite extensive previous conservative measures. A discussion of the risks and benefits of operative intervention versus continued conservative measures was made with the patient. He opted to proceed with surgery. Operative risks to include infection, neurovascular injury, development of blood clots, possible component loosening/failure need for subsequent procedures was discussed. Informed consent was obtained. Operative Findings: As below Description of Procedure: The patient was brought to the operating room, and after induction of spinal anesthesia the left lower extremity was prepped and draped in a normal fashion. The tourniquet was inflated to 270 mm marker. A longitudinal incision extending 3 finger breaths above the superior pole of patella extending to the medial aspect the tibial tubercle was then made. The skin and subcutaneous tissues were divided sharply. Electrocautery was used for hemostasis. A medial parapatellar arthrotomy was performed. The medial soft tissues to include the superficial and deep portions of the medial collateral ligament were elevated subperiosteally. The patella was everted. A portion of the retropatellar fat pad was excised sharply. The anterior cruciate ligament was sacrificed. Blunt retractors were placed. A starting hole was made in the distal femur 1 cm anterior to the posterior cruciate ligament origin. An intramedullary femoral guide was then inserted planning on 5 valgus distal cut with 9 mm distal resection. The cutting block was pinned in place. The distal cut was then made. The posterior referencing sizing guide was utilized. I felt size 7 was most appropriate. 3 of external rotation was built into the system and verified off the trans-epicondylar axis and the posterior condyles. The cutting block was pinned in place. The anterior, posterior, and chamfer cuts then made. Bone fragments were removed. The intercondylar guide was placed and the notch cut was made with a sagittal saw. The bone block was removed in one fragment. The trial component was then placed. There is good anterior to posterior and medial to lateral fit. The distal peg holes were drilled. The trial component was removed. Attention was then paid towards preparing the proximal tibia. An extra medullary guide was utilized in line with the tibial shaft and second metatarsal distally. I planned on 2 mm resection from the medial compartment. The cutting block was pinned in place. The proximal tibial cut was then made. The bone was removed in one fragment. The remnants of the medial and lateral menisci were excised at the capsular junction with electrocautery. The tibia sized most appropriately at size 6. The trial femoral and tibial components were placed along with a 9 mm articular surface. I was able to obtain full flexion and extension with internal and external rotation. After several flexion and extension cycles, the tibial rotation was marked with electrocautery line with the medial one third of the tibial tubercle. Attention was then paid towards preparing the patella. A patella reamer was utilized taking stem to 14 mm of bone stock. A good flush cut was made. The patella sized most appropriately 38 mm. The peg holes were drilled. The trial components placed. I had good patellofemoral tracking with no hands technique. The trial components were then removed. The tibia was prepared in the appropriate rotation with appropriate drill and keel punch. The posterior osteophytes were removed with a curved osteotome. The flexion and extension gaps were checked and felt to be symmetric at 9 mm. A trial components were then removed. The bony surfaces were prepared with pulsatile lavage and dried. The tibial component was then cemented place was fully seated. Excess cement was removed. The femoral component cemented place and was fully seated. Excess cement was removed. The trial 9 mm articular surface was placed and the knee was put in full extension. The patella component was cemented place. After the cement had sufficiently hardened, the knee was again taken through a range of motion. Again I was able to obtain full flexion and extension with varus and valgus stress. The trial 9 mm articular surface was removed and the final one in serted. This was fully seated. Care was taken to avoid any soft tissue interposition. Pulsatile lavage was again utilized. The medial parapatellar arthrotomy was closed with #2 Ethibond suture. The tourniquet was deflated with approximately 60 minutes total tourniquet time. Final hemostasis was obtained with the cautery. There was minimal bleeding therefore a deep drain was not placed. The subcutaneous tissues were reapproximated with interrupted 2-0 Vicryl sutures. The skin was reapproximated with 3-0 subcuticular strata fix suture. Skin tape and adhesive was applied. A sterile dressing was applied. The patient was awoken from sedation and transferred to recovery room in good condition. Blood loss was estimated at 50 mL. No complications were incurred. Sponge and needle counts were correct at the end of the case. Misael SANCHEZ assisted during the major components of this case to include exposure, bone resection, implantation, and closure.
[2023-02-01] MEDS: HYDROmorphone 0.5 MG/0.5 ML SYRINGE IVP PRN ×3 (10:12→10:45)
--- NOTE | 2023-02-01 10:30 | XR ---
EXAMINATION TYPE: XR knee limited LT DATE OF EXAM: 02/01/2023 10:25 AM INDICATION: Patient age:Male; 57 years old; Reason for study: Evaluation for Postop abnormality and alignment; [facility]. COMPARISON: Bilateral knee radiographs 07/21/2022 TECHNIQUE: The Left knee(s) was examined in frontal and crosstable lateral projections. FINDINGS: Post surgical changes from left total knee arthroplasty with distal femoral and proximal tibial components. Hardware appears intact with appropriate alignment. There is associated soft tissu e gas and edema. No acute fracture or dislocation. IMPRESSION: Postsurgical from left total knee arthroplasty. Hardware appears intact with appropriate alignment.
[2023-02-01] MEDS ORDERED: ROPIVACAINE 1,100 MG, SODIUM CHLORIDE 0.9% 500 ML 330 ML, EMPTY PAIN BALL 1 EACH MISCELLANE PRN ×2 (10:37)
--- NOTE | 2023-02-01 14:43 | P.CONS ---
History of Present Illness - Reason for Consult Consult date: 02/01/23 - History of Present Illness Patient is a 57-year-old male with history of depression presenting for elective left knee total arthroplasty. [facility] in [place] has been consulted for medical management. He denies smoking, illicit drug use, but does drink once per week. Currently patient is afebrile, normotensive, saturating at 96% on 2 L, normal heart rate, respiratory rate is 16. No lab work available. He denies any chest pain, shortness of breath, abdominal pain, nausea, vomiting, diarrhea, constipation, or urinary complaints. Pertinent positives and negatives as discussed in HPI, a complete review of systems was performed and all other systems are negative. Patient seen and examined at bedside. Vital signs reviewed General: nontoxic, no distress, appears at stated age Derm: warm, dry Head: atraumatic, normocephalic, symmetric Eyes: EOMI, no lid lag, anicteric sclera, pupils equal round reactive to light ENT: Nose and ears atraumatic Neck: No thyromegaly, supple Mouth: no lip lesion, mucus membranes moist Cardiovascular: S1S2 reg, no murmur, no edema Lungs: clear to auscultation bilateral, no rhonchi, no rales, no wheeze, no accessory muscle use Abdominal: soft, nontender to palpation, no guarding, no appreciable organomegaly Ext: no gross muscle atrophy, muscle strength muscle strength 5 out of 5 in all 4 extremities, no contractures Neuro: CN II-XII grossly intact Psych: Alert, oriented, appropriate affect Assessment/Plan: Active: Depression GERD Acute hypoxic respiratory failure, anticipated outcome postanesthesia Status post left total knee arthroplasty -Continue citalopram 20 mg daily, omeprazole 40 mg daily. -Continue to wean oxygen -On oral [place], IV Dilaudid as needed for pain control -xarelto 10 mg daily for DVT prophylaxis -On IV lactated Ringer's 100 mL an hour maintenance fluids -CBC and CMP ordered for tomorrow Thank you for allowing us to participate in the care of this pleasant patient. Do not hesitate to contact us with questions. Someone can be reached from the [facility] [place] hospitalist group all hours of the day at [phone] or via [employer]. 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 History of Any Multi-Drug Resistant Organisms: None Reported Past Surgical History: Hernia Repair, Orthopedic Surgery Additional Past Surgical History / Comment(s): arthroscopy left knee, carpel tunnel x2 rt hand, R total knee, left total knee 02/01/2023 Past Anesthesia/Blood Transfusion Reactions: No Reported Reaction Additional Past Anesthesia/Blood Transfusion Reaction / Comm: no hx blood transfusion Past Psychological History: Anxiety Smoking Status: Never smoker Past Alcohol Use History: Occasional Past Drug Use History: None Reported - Past Family History Mother Family Medical History: Cancer Additional Family Medical History / Comment(s): skin Medications and Allergies Home Medications Medication Instructions Recorded Confirmed Type Acetaminophen [Tylenol Arthritis] 650 mg PO Q8HR PRN 05/14/21 02/01/23 History Ascorbic Acid [Vitamin C] 1,000 mg PO DAILY 05/14/21 01/26/23 History Cholecalciferol [Vitamin D3 (25 25 mcg PO DAILY 05/14/21 01/26/23 History Mcg = 1000 Iu)] Citalopram Hydrobromide [CeleXA] 20 mg PO QAM 05/14/21 01/26/23 History Multivitamins, Thera [Multivitamin 1 tab PO DAILY 05/14/21 01/26/23 History (formulary)] Omeprazole 40 mg PO QAM 05/14/21 01/26/23 History Vitamin B Complex 1 each PO DAILY 05/14/21 01/26/23 History Mv-Mn/C/Glutamin/Lysin/Uzyl687 1 tablet PO DAILY 01/26/23 01/26/23 History [Airborne Gummies] Ubidecarenone [Co Q-10] 30 mg PO DAILY 01/26/23 01/26/23 History tadalafiL [Cialis] 20 mg PO DAILY 02/01/23 02/01/23 History Allergies Allergy/AdvReac Type Severity Reaction Status Date / Time amoxicillin Allergy Rash/Hives Verified 02/01/23 06:38 Iodinated Contrast Media Allergy Anaphylaxis Verified 02/01/23 06:38 Iodine and Iodide Containing Allergy Anaphylaxis Verified 02/01/23 06:38 Produc Physical Exam Vitals: Vital Signs Temp Pulse Pulse Resp BP Pulse Ox 02/01/23 11:21 76 16 124/85 96 02/01/23 11:06 77 16 136/82 97 02/01/23 10:51 75 16 132/79 97 02/01/23 10:37 87 16 121/67 95 02/01/23 10:22 84 16 117/70 96 02/01/23 10:07 96.8 F L 95 14 140/75 97 02/01/23 07:37 80 16 137/86 97 02/01/23 06:50 97.5 F L 94 16 132/85 97 Intake and Output 01/31/23 02/01/23 02/01/23 22:59 06:59 14:59 Intake Total 1501 Output Total 50 Balance 1451 Intake: IV 1501 Output: Estimated Blood Loss 50 Other: Weight 136.7 kg 136.7 kg
[2023-02-01] MEDS: ceFAZolin 3 GM in SODIUM CHLORIDE 0.9% 100 ML IVPB SCH ×2 (15:39→23:51)
[2023-02-01] MEDS: HYDROmorphone 1 MG/ML 1 ML SYRINGE IVP PRN (17:06)
[2023-02-01] MEDS ORDERED: SENNOSIDES-DOCUSATE SODIUM 1 EACH TAB PO SCH (21:00)
[2023-02-01] MEDS: HYDROcodone/APAP 7.5-325MG 1 EACH TAB PO PRN (23:51)
[2023-02-02] MEDS: HYDROmorphone 1 MG/ML 1 ML SYRINGE IVP PRN (01:27)
[2023-02-02] MEDS: LACTATED RINGERS 1,000 ML IV SCH (04:08)
[2023-02-02] MEDS: HYDROcodone/APAP 7.5-325MG 1 EACH TAB PO PRN ×2 (06:42→12:56)
--- NOTE | 2023-02-02 07:06 | P.PN ---
Progress Note - Text Progress Note Date: 02/02/23 Postoperative day # 1 status post total knee arthroplasty, and adductor canal catheter placed for postoperative analgesia, currently at ropivacaine 0.2% 8 mL per hour and continuous infusion, visual analogue scale is 3/10, patient using oral pain medication for breakthrough pain. Assessment and plan= Acute postoperative pain, adductor canal catheter for pain control, pain is well controlled we'll continue the same management.
[2023-02-02] MEDS ORDERED: PANTOPRAZOLE 40 MG TABLET PO SCH (07:30)
[2023-02-02 08:05] VITALS: BP 110/77; PULSE 110; RESP 18
[2023-02-02 08:49] LABS: Basophils % (A) 0 %; Eosinophils # (A) 0.1 k/uL (0-0.7); Eosinophils % (A) 2 %; HCT 34.9 % (39.0-53.0); HGB 12.3 gm/dL (13.0-17.5); Lymphocytes # (A) 1.1 k/uL (1.0-4.8); Lymphocytes % (A) 16 %; MCH 32.6 pg (25.0-35.0); MCHC 35.1 g/dL (31.0-37.0); MCV 92.8 fL (80.0-100.0); Mean Platelet Volume 7.4; Monocytes # (A) 0.5 k/uL (0-1.0); Monocytes % (A) 8 %; Neutrophils # (A) 5.2 k/uL (1.3-7.7); Neutrophils % (A) 74 %; Platelet Count 138 k/uL (150-450); RBC 3.76 m/uL (4.30-5.90); RDW 12.9 % (11.5-15.5); WBC 7.1 k/uL (3.8-10.6)
[2023-02-02] MEDS ORDERED: MULTIVITAMINS, THERA 1 EACH TAB PO SCH (09:00)
[2023-02-02] MEDS ORDERED: CITALOPRAM HYDROBROMIDE 20 MG TAB PO SCH (09:00)
[2023-02-02] MEDS ORDERED: RIVAROXABAN 10 MG TAB PO SCH (09:00)
--- NOTE | 2023-02-02 09:26 | P.PN ---
Subjective Progress Note Date: 02/02/23 Principal diagnosis: Left knee osteoarthritis Patient was seen at bedside this morning lying in semirecumbent position about to work with physical therapy. Patient says he is in minimal pain currently. Patient rates his pain as 5/10 currently. Patient denies radiation of pain. Patient says the pain is at the front of the knee. Patient says he has urinated several times since surgery yesterday. Patient says he has had something to eat and has been drinking plenty of fluids and surgery. Patient says he has not had a bowel movement yet, however, patient says he has been passing gas. Patient says he is looking forward to working with PT and hoping to go home today. P nichole does have a walker at home. Patient says he does mention that he had a low-grade fever early this morning. He denies chest pain, fever, shortness of breath, nausea, and, change in vision, bowel/bladder control. Objective - Vital Signs Vital signs: Vital Signs Temp 99.7 F H 02/02/23 08:00 Pulse 110 H 02/02/23 08:00 Resp 18 02/02/23 08:00 BP 110/77 02/02/23 08:00 Pulse Ox 92 L 02/02/23 08:00 FiO2 Intake & Output 02/01/23 02/02/23 02/02/23 18:59 06:59 18:59 Intake Total 4031 2020 118 Output Total 50 450 Balance 3981 1570 118 Weight 136.7 kg Intake: IV 1501 Intake, IV Titration 600 1300 Amount Lactated Ringers 1,000 ml 600 1200 @ 100 mls/hr IV .Q10H [facility] Rx#:[id number] ceFAZolin 3 gm In Sodium 100 Chloride 0.9% 100 ml @ 200 mls/hr IVPB Q8HR [facility] Rx#:[id number] Oral 1930 720 118 Output: Urine 0 450 Estimated Blood Loss 50 Other: # Voids 1 - Exam Left knee: Incision is clean, dry, and intact. The exofin fusion tape is in good condition. There is minimal soft tissue swelling and ecchymosis surrounding the medial and lateral aspects of the incision. Calf is soft, no tenderness with palpation. Plantar flexion, dorsiflexion, EHL, FHL are intact. Sensory exam to light touch throughout the extremity is intact, dorsal pedis pulses 2+. - Labs CBC & Chem 7: 02/02/23 06:41 Assessment and Plan Assessment: 1. Left knee osteoarthritis - Postoperative day #1 status post left total knee arthroplasty Plan: 1. Left knee osteoarthritis - left total knee arthroplasty performed yesterday, 02/01/2023. Patient stable at bedside this morning. Patient about to work with physical therapy. Pending evaluation for physical therapy, plan for discharge home with health services later this afternoon. 2. Appreciate medical management 3. Pain management - [place] 4. DVT prophylaxis - Xarelto 5. GI prophylaxis - senna 6. PT/OT - weightbearing as tolerated with walker 7. Encourage incentive spirometer use 8. Discharge planning - plan for discharge home with health services later to day. Time with Patient: Less than 30
--- NOTE | 2023-02-02 09:26 | P.DS ---
Providers Date of admission: 02/02/23 07:15 Expected date of discharge: 02/02/23 Attending physician: Olman Sprague Consults: 02/01/23 09:39 Consult Physician Routine Consulting Provider: Lien Kyle Consult Reason/Comments: medical management s/p left total knee arthroplasty Do you want consulting provider notified?: Yes Primary care physician: [facility] Course: Date of admission: 02/01/2023 Date of discharge: 2222 Admission diagnosis: Left knee osteoarthritis Discharge diagnosis: Same Attending physician: Dr. Sprague Surgical procedures: Left total knee arthroplasty Brief history: Patient is a 57-year-old male with a history of progressive primary left knee osteoarthritis. At this point patient has failed conservative treatment measures and has opted to proceed with a elective left total knee arthroplasty. Hospital course: Details of patient's surgery can be found in operative report. Patient tolerated the procedure well and was subsequently transported to orthopedic floor. Patient's orthopeidc and medical care was provided daily. Patient had daily laboratory tests performed for evaluation of overall blood counts. Patient had daily physical therapy to include strengthening range of motion as well as education with walker ambulation. Patient was treated with Xarelto for their postoperative DVT prophylaxis during their inpatient stay. Patient was noted to have a relatively uneventful postoperative course. Patient reported satisfactory pain control with oral pain medications by postoperative day 1. Patient showed satisfactory progress with physical therapy. Patient moved steadily through the program and had no difficulty meeting the goals by postoperative day 1. Given patient's otherwise satisfactory course and having met physical therapy goals, plan is to discharge patient home with health services on postoperative day 1. Discharge condition/disposition: Patient will be discharged home with health services in stable condition. Discharge medications: Instructions are given on resumption of patient's normal daily medications per primary care recommendation, in addition patient will be prescribed [place]; senna; Xarelto. Discharge instructions: 1. Wound care and infection precautions, keep incision dry and covered while showering, no lotions, creams, moisturizers. No soaking, tubs, pools, hottubs. Do not scrub over the incision. 2. Weight-bear as tolerated with walker / cane until follow-up. 3. Ice and elevate when necessary. Do not exceed 20 minutes per hour with ice pack. 4. Utilize compression sleeve until seen at first follow up appointment. 5. Visiting nursing care. 6. Home physical therapy including home CPM. 7. Pain meds and anticoagulants per prescription. 8. Pain medication has potential to cause constipation. Increase oral fluid and fiber intake. Contact primary care provider if you have not had a bowel movement within 48 hours after discharge 9. No anti-inflammatory medication until discussed at first post operative visit, this including Motrin, Aleve, Mobic, Diclofenac. 10. Follow up in office at 2 weeks postop with Evangelist Masters PA-C / Misael Luna PA-C 11. Follow up with your primary care doctor 7-10 days after discharge. 12. Contact [facility] with any questions, . Keep incision clean, dry, intact. While showering, cover fusion tape with Saran wrap. Keep fusion tape on until follow-up appointment in office in 2 weeks. Medications: [place]; senna; Xarelto. Assessment: Left knee osteoarthritis Procedures: Left total knee arthroplasty Patient Condition at Discharge: Good Plan - Discharge Summary Discharge Rx Participant: Yes New Discharge Prescriptions: No Action RX: Ascorbic Acid [Vitamin C] 1,000 mg PO DAILY RX: Multivitamins, Thera [Multivitamin (formulary)] 1 tab PO DAILY RX: Acetaminophen [Tylenol Arthritis] 650 mg PO Q8HR PRN PRN Reason: Pain RX: Cholecalciferol [Vitamin D3 (25 Mcg = 1000 Iu)] 25 mcg PO DAILY RX: Omeprazole 40 mg PO QAM RX: Citalopram Hydrobromide [CeleXA] 20 mg PO QAM RX: Vitamin B Complex 1 each PO DAILY Ubidecarenone [Co Q-10] 30 mg PO DAILY Mv-Mn/C/Glutamin/Lysin/Ddce419 [Airborne Gummies] 1 tablet PO DAILY tadalafiL [Cialis] 20 mg PO DAILY Discharge Medication List RX: Acetaminophen [Tylenol Arthritis] 650 mg PO Q8HR PRN 05/14/21 [History] RX: Ascorbic Acid [Vitamin C] 1,000 mg PO DAILY 05/14/21 [History] RX: Cholecalciferol [Vitamin D3 (25 Mcg = 1000 Iu)] 25 mcg PO DAILY 05/14/21 [History] RX: Citalopram Hydrobromide [CeleXA] 20 mg PO QAM 05/14/21 [History] RX: Multivitamins, Thera [Multivitamin (formulary)] 1 tab PO DAILY 05/14/21 [History] RX: Omeprazole 40 mg PO QAM 05/14/21 [History] RX: Vitamin B Complex 1 each PO DAILY 05/14/21 [History] Mv-Mn/C/Glutamin/Lysin/Fett728 [Airborne Gummies] 1 tablet PO DAILY 01/26/23 [History] Ubidecarenone [Co Q-10] 30 mg PO DAILY 01/26/23 [History] tadalafiL [Cialis] 20 mg PO DAILY 02/01/23 [History] Follow up Appointment(s)/Referral(s): Misael Luna PAC [[facility] [employer]] - 2 Weeks Patient Instructions/Handouts: *Surgery [facility] - ([facility]) Arthroscopic Knee Post-Op Instructions Activity/Diet/Wound Care/Special Instructions: Discharge instructions: 1. Wound care and infection precautions, keep incision dry and covered while showering, no lotions, creams, moisturizers. No soaking, tubs, pools, hottubs. Do not scrub over the incision. 2. Weight-bear as tolerated with walker / cane until follow-up. 3. Ice and elevate when necessary. Do not exceed 20 minutes per hour with ice pack. 4. Utilize compression sleeve until seen at first follow up appointment. 5. Visiting nursing care. 6. Home physical therapy including home CPM. 7. Pain meds and anticoagulants per prescription. 8. Pain medication has potential to cause constipation. Increase oral fluid and fiber intake. Contact primary care provider if you have not had a bowel movement within 48 hours after discharge 9. No anti-inflammatory medication until discussed at first post operative visit, this including Motrin, Aleve, Mobic, Diclofenac. 10. Follow up in office at 2 weeks postop with Evangelist Masters PA-C / Misael Luna PA-C 11. Follow up with your primary care doctor 7-10 days after discharge. 12. Contact [facility] with any questions, . Keep incision clean, dry, intact. While showering, cover fusion tape with Saran wrap. Keep fusion tape on until follow-up appointment in office in 2 weeks. Medications: [place]; senna; Xarelto. Discharge Disposition: HOME WITH HOME HEALTH SERVICES
[2023-02-02 09:28] LABS: Albumin 3.7 g/dL (3.8-4.9); Albumin/Globulin Ratio 1.76 (1.60-3.17); Anion Gap 5.6 mmol/L (10.00-18.00); BUN/Creat Ratio 18.44 Ratio (12.00-20.00); Blood Urea Nitrogen 16.6 mg/dL (9.0-27.0); Calcium 8.4 mg/dL (8.7-10.3); Carbon Dioxide 28.4 mmol/L (20.0-27.5); Globulin 2.1 g/dL (1.6-3.3); Non-African American GFR(CKD) 95.8 (60.0-200.0); Potassium 4.3 mmol/L (3.5-5.5); Total Bilirubin 0.5 mg/dL (0.30-1.20); Total Protein 5.8 g/dL (6.2-8.2)
--- NOTE | 2023-02-02 11:24 | P.PN ---
Subjective Progress Note Date: 02/02/23 Subjective: She is seen and examined at bedside. Overnight had one episode of fever with T- max of 101. She denies any chest pain, shortness of breath, abdominal pain, nausea, vomiting, diarrhea, constipation, or urinary complaints. He claims that his knee is sore. Pertinent positives and negatives as discussed above, a complete review of systems was performed and all other systems are negative. Vitals Signs Reviewed. General: nontoxic, no distress, appears at stated age Derm: warm, dry Head: atraumatic, normocephalic, symmetric Eyes: EOMI, no lid lag, anicteric sclera, pupils equal round reactive to light ENT: Nose and ears atraumatic Neck: No thyromegaly, supple Mouth: no lip lesion, mucus membranes moist Cardiovascular: S1S2 reg, no murmur, no edema Lungs: clear to auscultation bilateral, no rhonchi, no rales, no wheeze, no accessory muscle use Abdominal: soft, nontender to palpation, no guarding, no appreciable organomegaly Ext: no gross muscle atrophy, muscle strength muscle strength 5 out of 5 in all 4 extremities, no contractures Neuro: CN II-XII grossly intact Psych: Alert, oriented, appropriate affect Data Reviewed Today: Pertinent Labs: Hemoglobin 12.3, platelet 138, bicarb 28, creatinine 0.9 Assessment and Plan: Depression GERD Status post left total knee arthroplasty Mild blood loss anemia, anticipated outcome of surgery Fever -Continue citalopram 20 mg daily, omeprazole 40 mg daily. -On oral [place], IV Dilaudid as needed for pain control -xarelto 10 mg daily for DVT prophylaxis -On IV lactated Ringer's 100 mL an hour maintenance fluids -Fever likely in the setting of atelectasis Resolved: Acute hypoxic respiratory failure, anticipated outcome postanesthesia Patient is medically optimized for discharge home. Thank you for allowing us to participate in the care of this pleasant patient. Do not hesitate to contact us with questions. Someone can be reached from the [facility] hospitalist group all hours of the day at [phone] or via [employer]. Objective - Vital Signs Vital signs: Vital Signs Temp 99.7 F H 02/02/23 08:00 Pulse 110 H 02/02/23 10:51 Resp 18 02/02/23 08:00 BP 110/77 02/02/23 08:00 Pulse Ox 92 L 02/02/23 08:00 FiO2 Intake & Output 02/01/23 02/02/23 02/02/23 18:59 06:59 18:59 Intake Total 4031 2020 118 Output Total 50 450 Balance 3981 1570 118 Weight 136.7 kg Intake: IV 1501 Intake, IV Titration 600 1300 Amount Lactated Ringers 1,000 ml 600 1200 @ 100 mls/hr IV .Q10H [facility] Rx#:[id number] ceFAZolin 3 gm In Sodium 100 Chloride 0.9% 100 ml @ 200 mls/hr IVPB Q8HR [facility] Rx#:[id number] Oral 1930 720 118 Output: Urine 0 450 Estimated Blood Loss 50 Other: # Voids 1 - Labs CBC & Chem 7: 02/02/23 06:41 02/02/23 06:41 Labs: Abnormal Lab Results - Last 24 Hours (Table) 02/02/23 02/02/23 Range/Units 06:41 06:41 RBC 3.76 L (4.30-5.90) m/uL Hgb 12.3 L (13.0-17.5) gm/dL Hct 34.9 L (39.0-53.0) % Plt Count 138 L (150-450) k/uL Carbon Dioxide 28.4 H (20.0-27.5) mmol/L Anion Gap 5.60 L (10.00-18.00) mmol/L Glucose 194 H (70-110) mg/dL Calcium 8.4 L (8.7-10.3) mg/dL Total Protein 5.8 L (6.2-8.2) g/dL Albumin 3.7 L (3.8-4.9) g/dL
[2023-02-02 12:32] VITALS: TEMP 98.8
== END 2023-02-02 13:50 | disposition home health service (06) ==
LOC: OR 06:19 → 4SSUR 10:07 → OR 02-02 07:15 → 4SSUR 02-02 07:15
PROVIDERS: ADMIT Orthopaedic Surgery; ATTEND Orthopaedic Surgery
DX: M17.12 Unilateral primary osteoarthritis, left knee (principal); J96.01 Acute respiratory failure with hypoxia; G89.18 Other acute postprocedural pain; R50.82 Postprocedural fever; D50.0 Iron deficiency anemia secondary to blood loss (chronic); Q99.8 Other specified chromosome abnormalities; K21.9 Gastro-esophageal reflux disease without esophagitis; F32.A Depression, unspecified; F41.9 Anxiety disorder, unspecified; Z79.899 Other long term (current) drug therapy; Z88.0 Allergy status to penicillin; Z91.041 Radiographic dye allergy status; Z91.048 Other nonmedicinal substance allergy status; Z96.651 Presence of right artificial knee joint; Z98.890 Other specified postprocedural states; Z80.8 Family history of malignant neoplasm of other organs or systems
CPT/HCPCS: 27447; 97161; 64999; 64448; 76942; 80053; 85025; 88300; 73560; G0378; C1713 ×2; C1776; C1751; J2250; J0330; J0690 ×2; J2405; J3010; J1170 ×3; J2795; J2704; J2001